=== PATIENT | male | born 1970 | race American Indian/Alaskan Native ===

== ENCOUNTER → 2019-01-19 | Outpatient (CLI) | payer OTHER | END | disposition home or self-care (01) | LOC: PLD 12:00 → LAB SHORT 12:00 | DX: D48.5 Neoplasm of uncertain behavior of skin (principal) | CPT/HCPCS: 88305 ==

== ENCOUNTER 2023-02-26 10:10 | Day surgery (SDC) | payer OTHER ==
[~2023-02-26] VITALS: Ht 182.9 cm; Wt 93.6 kg
[2023-02-26] VITALS (14 sets, daily range): BP systolic 130–173; BP diastolic 75–142
[~2023-02-26 10:10] MED LIST: GABA400 PO; LOSA50 PO; MAGCIT300 PO; TESTOSTERO200 MG/1 M IM; THYR60 PO; TRAZ150T57 PO
[2023-02-26] MEDS ORDERED: METF500 PO (10:36)
--- NOTE | 2023-02-26 11:15 | NUR ---
02/26/23 1115 Rere Alcaraz HISTORY, CHART, MEDICATIONS AND ALLERGIES REVIEWED BEFORE START OF PROCEDURE. PATIENT CONFIRMS NPO STATUS AND AGREES WITH SCHEDULED PROCEDURE. 3-LEAD EKG REVIEWED WITH PHYSICIAN PRIOR TO START OF PROCEDURE. MONITOR INTACT WITH CONTINUOUS PULSE OXIMETRY,CAPNOGRAPHY, 3-LEAD EKG, INTERMITTENT BP. SUPPLEMENTAL O2 TO BE TITRATED THROUGHOUT PROCEDURE TO MAINTAIN O2 SATURATION ABOVE 90%. PATIENT DETERMINED TO BE ASA APPROPRIATE FOR PROPOFOL SEDATION PRIOR TO START OF PROCEDURE BY DR. MOLINA
--- NOTE | 2023-02-26 11:52 | NUR ---
PT TO DAY SURGERY STEP DOWN. PT IS AWAKE AND ORIENTED. ABLE TO MOVE SELF IN BED. NO COMPLAINTS.
--- NOTE | 2023-02-26 12:00 | NUR ---
Patient up to Ambulate independently. Gait steady. Discharged via wheelchair to private car for ride home.
--- NOTE | 2023-02-26 12:02 | NUR ---
Discharge instructions reviewed with patient. Patient verbalizes understanding. Copy given to patient to take home. Patient States Post-Procedure ride home has been arranged.
== END 2023-02-26 12:10 | disposition home or self-care (01) ==
LOC: ORSCMMR 10:10 → ORD 11:00 → ORSCMMR 12:10
PROVIDERS: Internal Medicine Gastroenterology
PROC: 0DBN8ZX Excision of Sigmoid Colon, Via Natural or Artificial Opening Endoscopic, Diagnostic (ICD-10-PCS; principal; 2023-02-26 11:00)
PROC: 0DBM8ZX Excision of Descending Colon, Via Natural or Artificial Opening Endoscopic, Diagnostic (ICD-10-PCS; principal; 2023-02-26 11:00)
DX: Z12.11 Encounter for screening for malignant neoplasm of colon (principal); K63.5 Polyp of colon; I10 Essential (primary) hypertension; E03.9 Hypothyroidism, unspecified; Z87.891 Personal history of nicotine dependence; F41.9 Anxiety disorder, unspecified; R73.03 Prediabetes; Z79.84 Long term (current) use of oral hypoglycemic drugs; Z79.899 Other long term (current) drug therapy
CPT/HCPCS: 82947; 88305; J2250; J2704; J7120